=== PATIENT | female | born 1985 ===

== ENCOUNTER 2025-01-18 09:50 | Day surgery (SDC) | payer OTHER ==
[2025-01-18] MEDS ORDERED: POVIDONE-IODINE 118 ML BOTT TOP ONE (15:28)
[2025-01-18] MEDS ORDERED: MORPHINE SULFATE 4 MG/ML VIAL IV PRN (17:30)
[2025-01-18] MEDS ORDERED: PROMETHAZINE HCL 50 MG/ML AMPUL IM ONE (17:30)
== END 2025-01-18 22:10 | disposition home or self-care (01) ==
LOC: CIR.AMB 09:50
PROVIDERS: ATTEND Obstetrics & Gynecology
DX: N84.0 Polyp of corpus uteri (principal); N72 Inflammatory disease of cervix uteri; N93.8 Other specified abnormal uterine and vaginal bleeding